=== PATIENT | male | born 1985 | race Hispanic/Latino ===

== ENCOUNTER 2017-11-13 18:12 | Emergency (ER) | payer SELFPAY ==
[2017-11-13] MEDS ORDERED: TETANUS/DIPHTHERIA TOXOID [ADULT] 0.5 ML VIAL IM ONE (18:23)
== END 2017-11-13 18:56 | disposition home or self-care (01) ==
LOC: EDH 18:12
DX: S10.91XA Abrasion of unspecified part of neck, initial encounter (principal); J45.909 Unspecified asthma, uncomplicated; Z72.0 Tobacco use; W26.0XXA Contact with knife, initial encounter; Y93.89 Activity, other specified; Y92.098 Other place in other non-institutional residence as the place of occurrence of the external cause; Y99.8 Other external cause status
CPT/HCPCS: 90471; 90714

== ENCOUNTER 2019-06-11 08:25 | Emergency (ER) | payer OTHER | END 2019-06-11 08:49 | LOC: EDH 08:25 → EEVIPCON 08:25 → EDH 08:49 | DX: M25.532 Pain in left wrist (principal); M25.531 Pain in right wrist; J45.909 Unspecified asthma, uncomplicated; F90.9 Attention-deficit hyperactivity disorder, unspecified type; F20.9 Schizophrenia, unspecified; F41.8 Other specified anxiety disorders; Z72.0 Tobacco use ==

== ENCOUNTER 2021-10-12 01:39 | Emergency (ER) | payer OTHER ==
[~2021-10-12] VITALS: Ht 172.7 cm; Wt 77.1 kg
[2021-10-12 01:41] VITALS: BP 121/72
[2021-10-12] MEDS ORDERED: KETOROLAC 60 MG VIAL (30MG/ML) IM STA (03:42)
[2021-10-12] MEDS ORDERED: LEVOFLOXACIN 500 MG TABLET PO STA (03:50)
[2021-10-12] MEDS ORDERED: CIPR-278 PO (03:52)
[2021-10-12] MEDS ORDERED: DICL35CA3 PO (03:52)
== END 2021-10-12 04:09 | disposition home or self-care (01) ==
LOC: EDH 01:39
DX: N45.3 Epididymo-orchitis (principal); J45.909 Unspecified asthma, uncomplicated
CPT/HCPCS: 96372; 99283; J1885